=== PATIENT | female | born 1990 | race African-American/Black ===

== ENCOUNTER 2024-03-17 18:48 | Emergency (ER) | payer OTHER, SELFPAY ==
[2024-03-17 19:03] VITALS: BP 141/100
--- NOTE | 2024-03-17 19:04 | ED.GENMED ---
Addendum entered and electronically signed by Caden Cardoza DO 03/18/24 19:56:
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
Original Note:
ED Provider Triage
<Millie Corado PA-C - Last Filed: 03/17/24 19:07>
-
Patient seen by provider in Triage?: Seen in Triage
Attestation: A medical screening examination has been initiated by a qualified medical provider. Based on the assessment performed at this time, it has been determined that an emergent medical condition may exist and the patient has been informed
that further medical evaluation and possible additional diagnostic testing may be needed.
HPI: 34yoF here with rectal bleeding. 3-4 hours ago was 'pouring blood' after a BM. Watery bowel movements since yesterday. No abd/rectal pain. No dizziness or syncope.
GENERAL: Alert , in no apparent distress
EYE: No visual abnormalities.
NECK: Trachea midline
ENT: No visible abnormalities.
LUNGS: No acute respiratory distress
NEUROLOGICAL: Alert and oriented
SKIN: Skin intact. No visible changes.
MUSCULOSKELETAL: Moving extremities normally
PSYCH: Normal and appropriate interaction.
This is a medical evaluation conducted in person to initiate diagnostic evaluation and provide initial therapeutics. Please see further documentation by the treating clinician.
CBC, CMP, and hCG ordered.
History of Present Illness
<Millie Corado PA-C - Last Filed: 03/17/24 19:07>
General
Chief Complaint: Rectal Bleeding
Time Seen by Provider: 03/17/24 20:24
<Caden Cardoza DO - Last Filed: 03/17/24 21:02>
General
Source: patient
Exam Limitations: none
History of Present Illness
History of Present Illness:
34-year-old female with a history of schizoaffective disorder present after she noticed blood in the toilet. She states felt like almost she had her period. She had normal stool but then a gush of blood. She then went again and open this seemed
to resolve. She states it only happened once. Does admit she had had some recent hard stools. She also had some alcohol recently and her diet was not exactly normal. She feels otherwise normal. She denies abdominal pain. No fever. No
vomiting. Patient admits that she also has a small skin 'lump' on her right breast that she wanted to get looked at. States been there for several months. In that area she had several 'boils'. She did have tile mechanic take a look at it and they
thought maybe it was something fluid-filled. The patient also states that the last few times she went to the [facility] her blood pressure was high. Probably been going on for few months. Her doctor recently retired and she did not get a primary care
physician.
Past History
<Millie Corado PA-C - Last Filed: 03/17/24 19:07>
Past History
ED Past Medical History: GERD (Gastritis, chronic upper abdominal pain) and Psychiatric (Depression/anxiety, schizoaffective)
ED Past Surgical History: Orthopedic
Social History
Tobacco: Smoker
Alcohol: Occasional
Drug: None
Personal: Single
Living: with family
Employment: Employed
Family History
Family History: Other (Contributory); Negative Cancer
Phy Exam
<Caden Cardoza DO - Last Filed: 03/17/24 21:02>
Physical Exam
Physical Exam:
CONSTITUTIONAL Patient alert and oriented to person, place and time. Well-appearing. Vital signs reviewed.
HEAD atraumatic, normocephalic.
EYES eyelids normal to inspection, Extraocular muscles intact, Conjunctiva normal, Sclera normal.
NECK normal range of motion, Trachea midline, no jugular venous distention.
RESPIRATORY CHEST No respiratory distress noted, Chest expansion equal
Breast exam no palpable masses but she does have a superficial skin lesion that is skin colored and appears almost like a keloid. Question whether this is scarring. No tenderness or redness. No flexor
ABDOMEN abdomen nontender, Bowel sounds normal. No distention.
Rectal exam small area of excoriation at the 6 o'clock position just inside the rectal verge. No obvious fissures. No external hemorrhoids.
BACK normal inspection, no obvious deformities
UPPER EXTREMITY range of motion normal, Motor strength normal, no cyanosis, no edema.
LOWER EXTREMITY range of motion normal, Motor strength normal, no cyanosis, no edema.
NEURO Speech normal, No focal motor deficits, Reva coma scale 15, Memory normal, Cranial Nerves intact to screening exam.
SKIN skin warm, dry, and normal in color.
Course
Prafullt;Millie Corado PA-C - Last Filed: 03/17/24 19:07>
Orders/Labs/Results
Orders:
Orders
03/17/24 19:07
Test Result ONCE
03/17/24 19:13
Complete Blood Count/With Diff Urgent
Comprehensive Metabolic Panel Urgent
HCG, Serum Qualitative Screen Urgent
03/17/24 20:43
Vital Signs- Treatment ONCE
Frequency: Once
Abnormal Lab Results
03/17/24
19:13
MCHC 32.2 L g/dL
(33.0-37.0)
ALT 56 H U/L
(0-35)
03/17/24 19:13
03/17/24 19:13
Vital Signs
Initial and Last Documented VS:
Initial Vital Signs
Temp Pulse Resp BP Pulse Ox
98.2 F 76 16 141/100 99
03/17/24 19:03 03/17/24 19:03 03/17/24 19:03 03/17/24 19:03 03/17/24 19:03
Last Documented Vital Signs
Temp Pulse Resp BP Pulse Ox
98.2 F 76 16 141/100 99
03/17/24 19:03 03/17/24 19:03 03/17/24 19:03 03/17/24 19:03 03/17/24 19:03
<Caden Cardoza DO - Last Filed: 03/17/24 21:02>
Orders/Labs/Results
Orders:
Orders
03/17/24 19:07
Test Result ONCE
03/17/24 19:13
Complete Blood Count/With Diff Urgent
Comprehensive Metabolic Panel Urgent
HCG, Serum Qualitative Screen Urgent
03/17/24 20:43
Vital Signs- Treatment ONCE
Frequency: Once
Abnormal Lab Results
03/17/24
19:13
MCHC 32.2 L g/dL
(33.0-37.0)
ALT 56 H U/L
(0-35)
03/17/24 19:13
03/17/24 19:13
Vital Signs
Initial and Last Documented VS:
Initial Vital Signs
Temp Pulse Resp BP Pulse Ox
98.2 F 76 16 141/100 99
03/17/24 19:03 03/17/24 19:03 03/17/24 19:03 03/17/24 19:03 03/17/24 19:03
Last Documented Vital Signs
Temp Pulse Resp BP Pulse Ox
98.2 F 76 16 141/100 99
03/17/24 19:03 03/17/24 19:03 03/17/24 19:03 03/17/24 19:03 03/17/24 19:03
<DO Juan Luis Ace Last Filed: 03/17/24 21:02>
MDM/Problems Addressed
Differential Diagnosis Includes:
Breast mass, diverticular bleeding, hemorrhoid, internal hemorrhoids, rectal fissure
MDM/Problems Addressed:
Acute rectal bleeding, acute uncontrolled hypertension
<DO Juan Luis Ace Last Filed: 03/17/24 21:02>
*Pulse Oximetry
Patient hypoxic: no
*Critical Care Note
Total Time (30-74mins, 75-104mins- exclusive of procedures): Not Applicable
Data Reviewed
Source: patient
Further Testing Considered But Not Given:
Consider CTA to look for source of bleeding but no current active bleeding.
<Caden Cardoza DO - Last Filed: 03/17/24 21:02>
Patient Management
Escalation/DeEscalation of care consider admission/obs:
Considered admission for hypertension but creatinine normal and no symptoms. Patient appears well. Repeat blood pressure still elevated. At this time we will start lisinopril. She will agree to follow-up with finding a primary care physician and
having recheck of her blood pressure. Suspect bleeding related to small area of excoriation. Do not suspect diverticular bleeding or other more proximal bleeding source. Right breast skin tissue change will refer to dermatology or plastics for
revision if desired by the patient.
<DO Juan Luis Ace Last Filed: 03/17/24 21:02>
Update Note
Update Note:
Patient counseled importance of smoking cessation
ED Attending Note
<Millie Corado PA-C - Last Filed: 03/17/24 19:07>
-
Portions of this chart may have been created with voice recognition software.� Occasional wrong word or��sound alike� substitutions may have occurred due to the inherent limitations of voice recognition software.
Discharge Plan
Departure
Patient Disposition: Home (Routine Discharge)
Date of Disposition: 03/17/24
Time of Disposition: 21:00
Patient with high blood pressure during this ER visit?: Yes
Discharge Problem:
Uncontrolled hypertension, Bright red rectal bleeding
Instructions: BLOOD PRESSURE
Prescriptions:
No Action
penicillin V potassium 500 mg tablet
500 mg PO BID 10 Days Qty: 20 0RF
benztropine 0.5 mg tablet
0.5 mg PO BID Qty: 30 0RF
Activity Restrictions/Additional Instructions:
Rectal bleeding
Return immediately for increased bleeding, abdominal pain, bloody stools, shortness of breath, chest pain, or any other concerns. Please be sure to follow-up with a primary care doctor to have your blood pressure rechecked. In addition, please
follow-up with dermatology and/or plastic surgery to have your skin looked at to determine if you would like to proceed with excision of your skin changes on your breast.
Your blood pressure was elevated while in the Emergency Department, please have your doctor re-evaluate it in the next 48 hours as untreated hypertension may lead to serious complications.
Interventions
Interventions:
*Risk Screen - Suicide Last Done: 03/17/24 19:03
*General Assessment Last Done: 03/17/24 19:03
*Neglect/Abuse Screening Last Done: 03/17/24 19:03
ED- Fall Risk Assessment Last Done: 03/17/24 20:02
*ED COVID-19 Vaccine History Last Done: 03/17/24 19:03
WO-Luovmz-Lzjsqruawi Assessment Last Done: 03/17/24 20:02
ED- Cardiac Assessment Last Done: 03/17/24 20:02
ED- Pulmonary Assessment Last Done: 03/17/24 20:02
Discharge Date and Time
Print Language: UPPER SORBIAN
[2024-03-17 19:25] LABS: Hematocrit 41.9 % (37.0-47.0); Hemoglobin 13.5 g/dL (12.0-16.0); Mean Corp Hgb Conc. 32.2 g/dL (33.0-37.0); Mean Corpuscular Hgb 27.9 pg (27.0-31.0); Mean Corpuscular Volume 86.6 fL (81.0-99.0); Mean Platelet Volume 10.2 fL (7.4-10.4); Platelet Count 231 10^3/uL (130-400); Red Blood Cell Count 4.84 10^6/uL (4.20-5.40); White Blood Cell Count 9.5 10^3/uL (4.8-10.8)
[2024-03-17 19:31] LABS: HCG, Serum Qualitative Screen Negative
[2024-03-17 19:34] LABS: ALT (SGPT) 56 U/L (0-35); AST (SGOT) 32 U/L (14-36); Albumin 4.4 g/dl (3.5-5.0); Alkaline Phosphatase 64 U/L (38-126); Blood Urea Nitrogen 8 mg/dl (7-17); Calcium 9.3 mg/dl (8.4-10.2); Carbon Dioxide 29 mmol/L (22-30); Chloride 102 mmol/L (98-107); Glucose 98 mg/dl (70-99); Potassium 4.5 mmol/L (3.5-5.1); Sodium 135 mmol/L (135-145); Total Bilirubin 0.4 mg/dl (0.2-1.3); Total Protein 6.8 g/dl (6.3-8.2); eGFR > 60.00
[2024-03-17 19:46] LABS: % Basophils 0.6 % (0-2); % Immature Granulocytes 0.3 % (0-0.5); % Lymphocytes 29.9 % (20.5-51.1); % Monocytes 4.3 % (1.7-9.3); % Neutrophils 63.9 % (42.2-75.2); Absolute Basophils 0.1 10^3/uL (0-0.2); Absolute Eosinophils 0.1 10^3/uL (0-0.7); Absolute Lymphocytes 2.8 10^3/uL (1.2-3.4); Absolute Monocytes 0.4 10^3/uL (0.1-0.6); Nucleated Red Blood Cells % 0 %
[2024-03-17 20:51] VITALS: BP 140/100
== END 2024-03-17 21:23 | disposition home or self-care (01) ==
LOC: EMR 18:48
PROVIDERS: Physician Assistant; EMERGENCY PHYSICIAN Emergency Medicine
DX: K62.5 Hemorrhage of anus and rectum (principal); I10 Essential (primary) hypertension; K21.9 Gastro-esophageal reflux disease without esophagitis; F17.200 Nicotine dependence, unspecified, uncomplicated
CPT/HCPCS: 99283; 80053; 84703; 85025

== ENCOUNTER 2024-04-22 15:37 | Emergency (ER) | payer OTHER, SELFPAY ==
[2024-04-22 15:42] VITALS: BP 141/90
--- NOTE | 2024-04-22 19:15 | ED.GENMED ---
History of Present Illness
General
Chief Complaint: Skin Problem
Time Seen by Provider: 04/22/24 18:41
History of Present Illness
History of Present Illness:
34-year-old female presents to the emergency department for evaluation of abnormal appearance to her prior bellybutton piercing. She is concerned for infection.
Past History
Past History
ED Past Medical History: GERD (Gastritis, chronic upper abdominal pain) and Psychiatric (Depression/anxiety, schizoaffective)
ED Past Surgical History: Orthopedic
Social History
Tobacco: Smoker
Alcohol: Occasional
Drug: None
Personal: Single
Living: with family
Employment: Employed
Family History
Family History: Other (Contributory); Negative Cancer
Review of Systems
Review of Systems
Allergies reviewed?: Yes
All Other Systems: ROS reviewed and negative except as documented in HPI and ROS
Phy Exam
Physical Exam
Physical Exam:
GEN: Well appearing, NAD, WDWN
HEENT: Oral mucosa moist, no scleral icterus
Cardiac: Regular rate
Lung: No respiratory distress, no tachypnea
Abdomen: Abnormal pedunculated skin above the umbilicus with attachment points, quite thin and friable with erythema
MSK: No gross deformity or injuries
Skin: Good color, no pallor or jaundice, no rashes
Neuro: AO x3, moves all extremities freely
Psych: Calm, cooperative
Course
Vital Signs
Initial and Last Documented VS:
Initial Vital Signs
Temp Pulse Resp BP Pulse Ox
98 F 84 16 141/90 100
04/22/24 15:42 04/22/24 15:42 04/22/24 15:42 04/22/24 15:42 04/22/24 15:42
Last Documented Vital Signs
Temp Pulse Resp BP Pulse Ox
98 F 85 20 135/75 98
04/22/24 15:42 04/22/24 19:26 04/22/24 19:26 04/22/24 19:26 04/22/24 19:26
MDM/Problems Addressed
MDM/Problems Addressed:
The abnormal tissue appears mildly infected, the patient was quite insistent that it be removed, I discussed risks with the patient and she agrees to proceed with excision. 2 elliptical incisions were made at the base of each stalk of skin and the
abnormal tissue was excised, the elliptical incisions were then closed with three 5-0 nylon sutures. Discussed supportive care, will treat with prophylactic antibiotics
*Critical Care Note
Total Time (30-74mins, 75-104mins- exclusive of procedures): Not Applicable
ED Attending Note
-
Portions of this chart may have been created with voice recognition software.� Occasional wrong word or��sound alike� substitutions may have occurred due to the inherent limitations of voice recognition software.
Discharge Plan
Departure
Patient Disposition: Home (Routine Discharge)
Date of Disposition: 04/22/24
Time of Disposition: 19:15
Patient with high blood pressure during this ER visit?: No
Discharge Problem:
Infected pierced belly button
Instructions: Wound Care (DC)
Prescriptions:
New
sulfamethoxazole-trimethoprim [Bactrim DS] 800-160 mg tablet
1 tab PO BID 5 Days Qty: 10 0RF
chlorhexidine gluconate 4 % liquid
1 applic topical ONCE Qty: 473 0RF
Rx Instructions:
Use on entire body in shower once weekly
No Action
penicillin V potassium 500 mg tablet
500 mg PO BID 10 Days Qty: 20 0RF
benztropine 0.5 mg tablet
0.5 mg PO BID Qty: 30 0RF
lisinopril 10 mg tablet
10 mg PO DAILY Qty: 30 0RF
Referrals:
NONE,* [Family Provider] -
Activity Restrictions/Additional Instructions:
Stitches removed in 7 days
Keep dry for rest of tonight
Interventions
Interventions:
*Risk Screen - Suicide Last Done: 04/22/24 15:42
*General Assessment Last Done: 04/22/24 19:26
*Neglect/Abuse Screening Last Done: 04/22/24 15:42
ED- Fall Risk Assessment Last Done: 04/22/24 19:26
*ED COVID-19 Vaccine History Last Done: 04/22/24 19:26
*Nursing Disposition Last Done: 04/22/24 19:26
ED-Skin Assessment Last Done: 04/22/24 19:26
Discharge Date and Time
Print Language: ROMANSH
[2024-04-22 19:26] VITALS: BP 135/75
== END 2024-04-22 19:26 | disposition home or self-care (01) ==
LOC: EMR 15:37
PROVIDERS: EMERGENCY PHYSICIAN Emergency Medicine
DX: S30.92XD Unspecified superficial injury of abdominal wall, subsequent encounter (principal); L08.9 Local infection of the skin and subcutaneous tissue, unspecified; X58.XXXD Exposure to other specified factors, subsequent encounter; F17.200 Nicotine dependence, unspecified, uncomplicated; K21.9 Gastro-esophageal reflux disease without esophagitis
CPT/HCPCS: 17999; 99283

== ENCOUNTER 2024-05-22 02:58 | Emergency (ER) | payer OTHER, SELFPAY ==
[2024-05-22 02:59] VITALS: BP 138/91
--- NOTE | 2024-05-22 03:12 | ED.GENMED ---
History of Present Illness
General
Chief Complaint: Foreign Body Removal
Source: patient
Exam Limitations: none
Time Seen by Provider: 05/22/24 03:02
Nursing documentation reviewed up to this point in time: agreed with
History of Present Illness
History of Present Illness:
Pt presents with concern for possible retained vaginal tampon. Her menses began today, light bleeding. She remembers placing a tampon this evening, went out with a friend and was drinking alcohol.
When she went to the bathroom to change her tampon, she discovered that there was no string and she cannot recall removing the tampon this evening. She was afraid to insert a tampon, for fear of a retained tampon.
She denies abdominal pain, denies vaginal pain. No dysuria and urgency and or hematuria. No fevers or chills.
Past History
Past History
ED Past Medical History: GERD (Gastritis, chronic upper abdominal pain) and Psychiatric (Depression/anxiety, schizoaffective)
ED Past Surgical History: Orthopedic
Social History
Tobacco: Smoker
Alcohol: Occasional
Drug: None
Personal: Single
Living: with family
Employment: Employed
Family History
Family History: Other (Contributory); Negative Cancer
Phy Exam
Physical Exam
Physical Exam:
GENERAL: 34-year-old woman appears her stated age, bright and alert, pleasant, appears in no acute distress.
EYE: . anicteric
ENT: Oral mucosa is moist.
CARDIAC: Regular rate and rhythm. no murmur.
LUNGS: No respiratory distress.
ABDOMEN: Soft, nondistended, without focal tenderness, normoactive BS.
: Speculum exam reveals no retained foreign body. Small amount of dark red blood within vaginal vault.
NEUROLOGICAL: Alert and oriented x3, no focal neuro deficits. Gait is mcmanus and steady.
SKIN: Warm and dry, normal color, skin intact. No rash.
MUSCULOSKELETAL: No C/C/E. Nontender.
PSYCH: Normal and appropriate interaction.
Course
Vital Signs
Initial and Last Documented VS:
Initial Vital Signs
Temp Pulse Resp BP Pulse Ox
97 F 102 16 138/91 98
05/22/24 02:59 05/22/24 02:59 05/22/24 02:59 05/22/24 02:59 05/22/24 02:59
Last Documented Vital Signs
Temp Pulse Resp BP Pulse Ox
97 F 102 16 138/91 98
05/22/24 02:59 05/22/24 02:59 05/22/24 02:59 05/22/24 02:59 05/22/24 02:59
MDM/Problems Addressed
Differential Diagnosis Includes:
Patient presents with concern for retained tampon.
Speculum exam reveals empty vaginal vault, no retained foreign body. Scant vaginal bleeding.
Patient has been provided with a pad and underwear.
Will discharge to home with plan for follow-up with PCP/PLASTIC FRAME INSERTER as needed.
Chronic conditions affecting care: Psychiatric illness
*Pulse Oximetry
Patient hypoxic: no
*Critical Care Note
Total Time (30-74mins, 75-104mins- exclusive of procedures): Not Applicable
ED Attending Note
-
Portions of this chart may have been created with voice recognition software.� Occasional wrong word or��sound alike� substitutions may have occurred due to the inherent limitations of voice recognition software.
Discharge Plan
Departure
Patient Disposition: Home (Routine Discharge)
Date of Disposition: 05/22/24
Time of Disposition: 03:12
Patient with high blood pressure during this ER visit?: No
Condition: Good
Discharge Problem:
concern for vaginal foreign body
Instructions: Menstruation
Prescriptions:
No Action
penicillin V potassium 500 mg tablet
500 mg PO BID 10 Days Qty: 20 0RF
benztropine 0.5 mg tablet
0.5 mg PO BID Qty: 30 0RF
lisinopril 10 mg tablet
10 mg PO DAILY Qty: 30 0RF
sulfamethoxazole-trimethoprim [Bactrim DS] 800-160 mg tablet
1 tab PO BID 5 Days Qty: 10 0RF
chlorhexidine gluconate 4 % liquid
1 applic topical ONCE Qty: 473 0RF
Rx Instructions:
Use on entire body in shower once weekly
Interventions
Interventions:
*Risk Screen - Suicide Last Done: 05/22/24 02:59
*General Assessment Last Done: 05/22/24 02:59
*Neglect/Abuse Screening Last Done: 05/22/24 02:59
Discharge Date and Time
Print Language: GEORGIAN
== END 2024-05-22 03:25 | disposition home or self-care (01) ==
LOC: EMR 02:58
PROVIDERS: EMERGENCY PHYSICIAN Emergency Medicine
DX: Z04.89 Encounter for examination and observation for other specified reasons (principal); K21.9 Gastro-esophageal reflux disease without esophagitis; F17.200 Nicotine dependence, unspecified, uncomplicated; Z87.19 Personal history of other diseases of the digestive system
CPT/HCPCS: 99282

== ENCOUNTER 2024-08-01 22:37 | Emergency (ER) | payer OTHER, SELFPAY ==
[2024-08-01 22:40] VITALS: BP 175/110
--- NOTE | 2024-08-02 00:47 | ED.GENMED ---
History of Present Illness
General
Chief Complaint: Throat Problem
Source: patient
Exam Limitations: none
Time Seen by Provider: 08/02/24 00:26
Nursing documentation reviewed up to this point in time: agreed with
History of Present Illness
History of Present Illness:
Patient presents to ED secondary to 1 week history of persistent sore throat. Denies headache. Denies coughing. Denies nausea, vomiting, or diarrhea. Denies neck pain. Denies loss of appetite. Denies sick contact. No recent travel. Denies
recent injury. Patient reports having had similar symptoms long time ago, when she was diagnosed with strep pharyngitis. Patient is otherwise healthy without any significant medical history.
Past History
Past History
ED Past Medical History: GERD (Gastritis, chronic upper abdominal pain) and Psychiatric (Depression/anxiety, schizoaffective)
ED Past Surgical History: Orthopedic
Social History
Tobacco: Smoker
Alcohol: Occasional
Drug: None
Personal: Single
Living: with family
Employment: Employed
Family History
Family History: Other (Contributory); Negative Cancer
Review of Systems
Review of Systems
Allergies reviewed?: Yes
All Other Systems: ROS reviewed and negative except as documented in HPI and ROS
Constitutional: Reports no symptoms; Denies fever or chills
EENT: Reports sore throat; Denies mouth pain or runny nose
Respiratory: Reports no symptoms; Denies cough
ABD/GI: Reports no symptoms; Denies vomiting or diarrhea
Musculoskeletal: Reports no symptoms
Skin: Reports no symptoms; Denies rash
Neurological: Reports no symptoms; Denies headache
Phy Exam
Physical Exam
Physical Exam:
Physical Exam
General: no apparent distress, not acutely ill. afebrile
Head: nc/at. eomi
Neck: supple. no meningeal signs. normal posterior pharynx. normal uvula
Heart: s1/s2 regular rate and rhythm, no murmur.
Lungs: no acute respiratory distress. clear bilaterally
Abdomen: normal bowel sounds. not tender. no distention
Neuro: alert and oriented x 3. no focal neurological deficits
Skin: no rash
Psychiatric: well kept. interactive and cooperative
Extremities: no edema. no calf tenderness.
Course
Orders/Labs/Results
Orders:
Orders
08/01/24 22:45
Rapid Strep Group A Urgent
ANGELA Source: T
Specimen Description:
Date Specimen was Collected: 08/01/24
Time Specimen was Collected: 22:39
Comment: ADD ON
Throat Culture [Throat Culture, Comprehensive] Urgent
ANGELA Source: Throat/Pharynx
Specimen Description:
Date Specimen was Collected: 08/01/24
Time Specimen was Collected: 22:39
Comment: strep
08/01/24 22:52
Add On - Microbiology Urgent
Tests Added?: Rapid strep
08/02/24 00:46
Dexamethasone Pf [Decadron] 10 mg PO NOW STA
Ibuprofen [Motrin] 400 mg PO NOW STA
08/02/24 00:52
Monotest Urgent
Vital Signs
Initial and Last Documented VS:
Initial Vital Signs
Pulse Resp BP Pulse Ox
76 18 175/110 100
08/01/24 22:40 08/01/24 22:40 08/01/24 22:40 08/01/24 22:40
Last Documented Vital Signs
Temp Pulse Resp BP Pulse Ox
98.6 F 72 15 149/99 100
08/01/24 22:42 08/02/24 01:11 08/02/24 01:11 08/02/24 01:11 08/02/24 01:11
MDM/Problems Addressed
MDM/Problems Addressed:
History and exam consistent with likely viral illness. Patient will be treated symptomatically with NSAIDs and 1 dose of Decadron, along with recommendation to follow-up with PCP for reevaluation. As patient is currently in the midst of looking
for PCP, she will contact phone number listed on insurance card to obtain a list of local family physicians.
Monotest pending. Throat culture pending.
*Critical Care Note
Total Time (30-74mins, 75-104mins- exclusive of procedures): Not Applicable
ED Attending Note
-
Portions of this chart may have been created with voice recognition software.� Occasional wrong word or��sound alike� substitutions may have occurred due to the inherent limitations of voice recognition software.
Discharge Plan
Departure
Patient Disposition: Home (Routine Discharge)
Date of Disposition: 08/02/24
Time of Disposition: 00:47
Patient with high blood pressure during this ER visit?: Yes
Condition: Good
Discharge Problem:
Sore throat
Instructions: Sore Throat, Adult (DC)
Prescriptions:
No Action
penicillin V potassium 500 mg tablet
500 mg PO BID 10 Days Qty: 20 0RF
benztropine 0.5 mg tablet
0.5 mg PO BID Qty: 30 0RF
lisinopril 10 mg tablet
10 mg PO DAILY Qty: 30 0RF
sulfamethoxazole-trimethoprim [Bactrim DS] 800-160 mg tablet
1 tab PO BID 5 Days Qty: 10 0RF
chlorhexidine gluconate 4 % liquid
1 applic topical ONCE Qty: 473 0RF
Rx Instructions:
Use on entire body in shower once weekly
Activity Restrictions/Additional Instructions:
As discussed, please follow-up with your primary care physician with any further concerns.
Interventions
Interventions:
*Risk Screen - Suicide Last Done: 08/01/24 22:43
*General Assessment Last Done: 08/01/24 22:43
*Neglect/Abuse Screening Last Done: 08/01/24 22:43
*ED COVID-19 Vaccine History Last Done: 08/01/24 22:43
*Nursing Disposition Last Done: 08/02/24 01:13
ED-EENT Assessment Last Done: 08/02/24 01:11
ED- Pulmonary Assessment Last Done: 08/02/24 01:11
Discharge Date and Time
Discharge Date/Time: 08/02/24 01:19
Print Language: SPANISH
[2024-08-02] MEDS: DECADRON 10 MG PO (00:51)
[2024-08-02] MEDS: MOTRIN 400 MG PO (00:51)
[2024-08-02 01:11] VITALS: BP 149/99
[2024-08-02 01:30] LABS: Monotest Negative (Negative)
== END 2024-08-02 01:19 | disposition home or self-care (01) ==
LOC: EMR 22:37
PROVIDERS: EMERGENCY PHYSICIAN Emergency Medicine
DX: J02.9 Acute pharyngitis, unspecified (principal); H92.09 Otalgia, unspecified ear; R03.0 Elevated blood-pressure reading, without diagnosis of hypertension; K21.9 Gastro-esophageal reflux disease without esophagitis; K29.50 Unspecified chronic gastritis without bleeding; F41.9 Anxiety disorder, unspecified; F32.A Depression, unspecified; F25.9 Schizoaffective disorder, unspecified; F17.200 Nicotine dependence, unspecified, uncomplicated; Z91.013 Allergy to seafood; Z88.8 Allergy status to other drugs, medicaments and biological substances; Z91.048 Other nonmedicinal substance allergy status
CPT/HCPCS: 99283; 86308; 87070; 87880

== ENCOUNTER 2025-01-23 10:17 | Emergency (ER) | payer OTHER, SELFPAY ==
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
[2025-01-23 11:14] VITALS: BP 141/90
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
[2025-01-23 12:03] LABS: Hematocrit 42.8 % (37.0-47.0); Hemoglobin 14.1 g/dL (12.0-16.0); Mean Corp Hgb Conc. 32.9 g/dL (33.0-37.0); Mean Corpuscular Volume 85.1 fL (81.0-99.0); Nucleated Red Blood Cells % 0 %; Platelet Count 254 10^3/uL (130-400); Red Cell Dist. Width 13.6 % (11.5-14.5)
[2025-01-23 12:07] LABS: HCG, Serum Qualitative Screen Negative
[2025-01-23 12:13] LABS: ALT (SGPT) 23 U/L (0-35); AST (SGOT) 30 U/L (14-36); Albumin 4.3 g/dl (3.5-5.0); Alkaline Phosphatase 77 U/L (38-126); Blood Urea Nitrogen 8 mg/dl (7-17); Calcium 9.0 mg/dl (8.4-10.2); Carbon Dioxide 26 mmol/L (22-30); Chloride 109 mmol/L (98-107); Glucose 76 mg/dl (70-99); Potassium 3.9 mmol/L (3.5-5.1); Sodium 141 mmol/L (135-145); Total Protein 6.8 g/dl (6.3-8.2); eGFR > 60.00
[2025-01-23 16:13] VITALS: BP 126/80
[2025-01-24 05:27] VITALS: BP 126/84
[2025-01-24 11:00] VITALS: BP 134/86
--- NOTE | 2025-01-24 12:35 | EDRN ---
Report given to [facility] by Jackie in Crisis. Patient cooperative.
== END 2025-01-24 12:15 ==
LOC: EMR 10:17
PROVIDERS: Physician Assistant; EMERGENCY PHYSICIAN Emergency Medicine; OTHER PHYSICIAN Psychiatry & Neurology Psychiatry
DX: S00.11XA Contusion of right eyelid and periocular area, initial encounter (principal); S09.90XA Unspecified injury of head, initial encounter; Y04.2XXA Assault by strike against or bumped into by another person, initial encounter; R63.4 Abnormal weight loss; F31.9 Bipolar disorder, unspecified; F25.9 Schizoaffective disorder, unspecified; R44.0 Auditory hallucinations; F29 Unspecified psychosis not due to a substance or known physiological condition; F32.A Depression, unspecified; F41.9 Anxiety disorder, unspecified; F17.200 Nicotine dependence, unspecified, uncomplicated; Z91.013 Allergy to seafood; Z88.8 Allergy status to other drugs, medicaments and biological substances; Z91.048 Other nonmedicinal substance allergy status
CPT/HCPCS: 99285; 70450; 70486; 72125; 80053; 80306; 82077; 84703; 85025